=== PATIENT | female | born 1955 | race Hispanic/Latino ===

== ENCOUNTER 2018-03-28 09:18 | Emergency (ER) | payer MEDICARE ==
[2018-03-28 10:19] VITALS: BP 93/45
--- NOTE | 2018-03-28 11:02 | XRay Report ---
Left hand 3 views: History: Trauma. Findings: There is dislocation noted of the proximal phalanx of fifth finger. There is fracture noted at the base of the proximal phalanx of fourth finger. Impression: Findings as detailed above.
[2018-03-28] MEDS ORDERED: MARCAINE 0.25% INFILTRATI ONE ×2 (11:38→11:39)
[2018-03-28] MEDS ORDERED: NORCO 5/325 ONE (11:39)
[2018-03-28] MEDS ORDERED: NORCO 5/325 PO ONE (11:40)
--- NOTE | 2018-03-28 11:40 | Emergency Department Report ---
Blank Doc - Documentation Documentation: Patient is a 62-year-old female who is in a [facility]p. Patient is here with her caregiver. When the caregiver left last night patient was noted to be fine when she saw her this morning patient has fallen overnight and has bruise at the left eye a mild headache and also left hand injury. The patient have a head CT x-ray of the hand and will be reassessed.
--- NOTE | 2018-03-28 11:44 | Emergency Department Report ---
ED Fall HPI - General Chief Complaint: Fall Stated Complaint: SWOLLEN LEFT HAND Time Seen by Provider: 03/28/18 11:34 Source: patient (caregiver), EMS Mode of arrival: Wheelchair Limitations: No Limitations - History of Present Illness Initial Comments: Patient is a 62-year-old female who is in a long term. Patient is here with her caregiver. When the caregiver left last night patient was noted to be fine when she saw her this morning patient has fallen overnight and has bruise at the left eye a mild headache and also left hand injury. Patient states that she also fell 3 days ago. Caregiver reported the patient has multiple episode of fall due to Xanax use or overuse and also mass. She is at [facility] currently for rehabilitation and she said she tripped and fell and injured her left facial area and left hand. She is reporting pain at 9 out of 10 worse with movement better with rest caregiver reported that patient did not get any pain relief prior to coming to the ER and she came here via ambulance. Patient denies any headache but reports pain to her left facial area. She is also a report that she is presenting face only. Patient reports that she did not lose consciousness and caregiver reports that she was reportedly the patient did not lose consciousness. She said that patient takes multiple medication makes her sleepy. She denies any nausea or vomiting. Complaint: fall, other (laceration, hand.) -: This afternoon Fall From: standing When Fall Occurred: 1-3 hours [employer] INSPECT[employer] Fall Witnessed: yes, by living facility s Place Fall Occurred: other (rehab) Loss of Consciousness: none Prolonged Down Time?: no Symptoms Prior to Fall: none Location: head Location - Extremities: Left: Hand (bruising, swelling, laceration and deformity with pain included fingers) Severity: severe Severity scale (0 -10): 9 Quality: other (throbbing) Context: tripped/slipped, other (caregiver reports pt take many sedative medication. at [facility] for rehab) Associated Symptoms: other (unsteady and feet). denies: headache, neck pain, numbness, weakness, chest paint, shortness of breath, abdominal pain, hematuria , unable to walk, lightheaded, vertigo, confusion - Related Data Previous Rx's Medication Instructions Recorded Last Taken Type Acetaminophen 500 mg PO Q8H PRN #12 capsule 03/28/18 Unknown Rx Allergies Allergy/AdvReac Type Severity Reaction Status Date / Time No Known Allergies Allergy Unverified 03/28/18 10:19 ED Review of Systems ROS: Stated complaint: SWOLLEN LEFT HAND Other details as noted in HPI Comment: All other systems reviewed and negative Constitutional: denies: chills, fever Eyes: other (present around left eye). denies: eye pain, eye discharge, vision change ENT: denies: ear pain, throat pain, epistaxis, congestion Respiratory: denies: cough, shortness of breath, SOB with exertion, SOB at rest , stridor, wheezing Cardiovascular: denies: chest pain, palpitations, dyspnea on exertion, edema, syncope, paroxysmal nocturnal dyspnea Gastrointestinal: denies: abdominal pain, nausea, vomiting, diarrhea Genitourinary: denies: dysuria, hematuria Musculoskeletal: joint swelling, arthralgia, myalgia. denies: back pain Skin: rash, change in color, other (bruising to left hand and left facial area) . denies: lesions Neurological: abnormal gait. denies: headache, weakness, numbness, paresthesias , confusion ED Past Medical Hx - Past Medical History Previous Medical History?: Yes Hx Hypertension: Yes Hx Diabetes: Yes Additional medical history: Nicotine abuse. Thoracic vertebra fracture. Potassium - Surgical History Past Surgical History?: No - Family History Family history: CAD/DE, cancer, diabetes, hypertension - Social History Smoking Status: Current Every Day Smoker Substance Use Type: Prescribed - Medications Home Medications: Home Medications Medication Instructions Recorded Confirmed Last Taken Type Acetaminophen 500 mg PO Q8H PRN #12 capsule 03/28/18 Unknown Rx ED Physical Exam - General Limitations: Physical Limitation (patient unsteady and feet) General appearance: alert, in no apparent distress - Head Head exam: Present: atraumatic, normocephalic. Absent: normal inspection - Expanded Head Exam Expanded Head exam: Present: contusion (left periorbital area and facial area), racoon eyes (left eye). Absent: laceration, abrasion, hematoma, doyle's sign, general tenderness, tenderness of temporal artery, CSF rhinorrhea, CSF otorrhea - Eye Eye exam: Present: normal appearance, PERRL, EOMI, nystagmus, periorbital swelling (left), periorbital tenderness (left). Absent: scleral icterus, conjunctival injection Pupils: Present: normal accommodation - ENT ENT exam: Present: normal exam, normal orophraynx, mucous membranes moist, TM's normal bilaterally - Neck Neck exam: Present: normal inspection, full ROM, other (no C-spine tenderness). Absent: tenderness, lymphadenopathy - Expanded Neck Exam Expanded Neck exam: Absent: tenderness, midline deformity, anterior neck swelling, tracheal deviation - Respiratory Respiratory exam: Present: normal lung sounds bilaterally. Absent: respiratory distress, wheezes, rales, rhonchi, stridor, chest wall tenderness, accessory muscle use, decreased breath sounds, prolonged expiratory - Cardiovascular Cardiovascular Exam: Present: regular rate, normal rhythm, normal heart sounds. Absent: systolic murmur, diastolic murmur, rubs, gallop - GI/Abdominal GI/Abdominal exam: Present: soft, normal bowel sounds. Absent: distended, tenderness, guarding, rebound, rigid, organomegaly, mass, bruit, pulsatile mass , hernia - Extremities Exam Extremities exam: Present: full ROM, tenderness, normal capillary refill, joint swelling, other (no clubbing, cyanosis or edema to extremities except left hand dorsal aspect with swelling. Positive contusion and ecchymotic area to the dorsal aspect of her hand. +2 pulses in all extremities. No neurovascular compromise. Positive deformity to left fifth and fourth digits. Positive bruising to left fifth fourth and fifth digit. Noted laceration, small to left hand. No joint crepitus. Patient with full range of motion to all extremities and +5/5 movement.). Absent: normal inspection, pedal edema, calf tenderness - Expanded Upper Extremity Exam Left General: Present: laceration (left hand). Absent: normal inspection, nail injury (#), foreign body, amputation, avulsion Shoulder Exam: Present: normal inspection, full ROM. Absent: tenderness, abrasion, laceration, ecchymosis, deformity, crepidus, dislocation, erythema, tenderness over AC joint Upper Arm exam: Present: normal inspection. Absent: tenderness, swelling, abrasion, laceration, ecchymosis, deformity, crepidus, dislocation, erythema Elbow exam: Present: normal inspection, full ROM. Absent: tenderness, swelling , abrasion, laceration, ecchymosis, deformity, crepidus, dislocation, erythema, effusion, pain w/ pronation/supination, tenderness over radial head Forearm Wrist exam: Present: normal inspection, full ROM. Absent: tenderness, swelling, abrasion, laceration, ecchymosis, deformity, crepidus, dislocation, erythema, tenderness over anatomical snuff box, pain with axial thumb loading Hand Wrist exam: Present: full ROM (for range of motion to left hand the patient reports pain with movement.), tenderness (tender to palpate the left hand and left fifth fourth and third digit.), swelling (left hand dorsal aspect and 15 for digit.), laceration (small 1 cm laceration noted to left hand.), ecchymosis (left hand and fist and 4 digits), deformity (left fifth digit), dislocation (left fifth digit), erythema (left hand). Absent: normal inspection , abrasion, crepidus, amputation, nail avulsion, subungual hematoma Neuro motor exam: Present: wrist extension intact, thumb opposition intact, thumb IP flexion intact, thumb adduction intact, fingers 2-5 abduction intact Neurosensory exam: Present: 2-point discrimination, radial nerve intact, ulnar nerve intact, median nerve intact Vascular: Present: normal capillary refill, radial pulse, brachial pulse, ulnar pulse. Absent: vascular compromise, Pallo, pulse deficit radial art, pulse deficit ulnar art, pulse deficit brachial art - Back Exam Back exam: Present: normal inspection, full ROM, other (patient ambulates). Absent: tenderness, CVA tenderness (R), CVA tenderness (L), muscle spasm, paraspinal tenderness, vertebral tenderness, rash noted - Neurological Exam Neurological exam: Present: alert, oriented X3 - Psychiatric Psychiatric exam: Present: normal affect, normal mood - Skin Skin exam: Present: warm, dry, intact, normal color. Absent: rash ED Course Vital Signs 03/28/18 03/28/18 03/28/18 10:12 11:51 15:30 Temperature 98.6 F Pulse Rate 65 65 Respiratory 16 18 16 Rate Blood Pressure 93/45 O2 Sat by Pulse 95 99 Oximetry - Reevaluation(s) Reevaluation #1: 03/28/18 12:39 Patient received hydrocodone 5/325 mg tablet by mouth for right hand pain. Patient dislocation of the fifth metacarpal bone and fracture of fourth proximal phalanx. She is status post digital block with reduction. Awaits postreduction x-ray. Please see procedure note for details. Reevaluation #2: 03/28/18 14:57 Post reduction x-ray of left hand as stable. Patient pains better. Splint placed please see procedure note for details. Patient stable - Laceration /Wound Repair Left Distal Dorsal Hand Wound Location: upper extremity (left hand between the fourth and third metacarpal bone area.) Wound Length (cm): 1 Wound's Depth, Shape: superficial, linear Wound Explored: clean Irrigated w/ Saline (ccs): 100 Betadine Prep?: Yes Volume Anesthetic (ccs): 0 Wound Debrided: moderate Wound Repaired With: Steri-strips (5 small Steri-Strips and wound edges are well approximated.) Number of Sutures: 5 Layer Closure?: No Sterile Dressing Applied?: Yes - Nerve Block Consent Obtained: verbal consent, emergent situation Time Out Performed: Yes Local Anesthetic Used: Marcaine 0.25% Amount of anesthesia used: 3 Side: left Nerve Blocks: ulnar, digital Procedure Successful: Yes (patient tolerated) Complications: none Patient Tolerated Procedure: well, no complications - Orthopedic Joint Reduction Joint #1 Consent Obtained: verbal consent, emergent situation Time Out Performed: Yes Side: left Joint Reduction Location: other (fifth MCP joint) Analgesia: digital block Local Anesthetic Used: Bupivicaine 0.25% Amount of Anesthetic Used (mls): 4 Technique Used: traction/counter-traction, direct manipulation Post-Reduction Neuro Exam: intact Post-Reduction Vascular Exam: intact Post Reduction X-Ray Obtained: Yes Splint Applied: Yes - Orthopedic Splinting/Casting Injury #1 Side: left Upper Extremity Injury Location: hand Upper Extremity Immobilizer: volar spint Additional Comments: status post splint, patient with good color, sensation, movement, temperature 2 fingers of left hand. ED Medical Decision Making - Radiology Data Radiology results: report reviewed X-ray of left hand reveals dislocation of proximal phalanx of fifth finger films with dislocation of fifth MCP joint. Also x-ray of the left hand with fracture of the base of the proximal phalanx of fourth finger. Post reduction x-ray reported patient with satisfactory reduction of dislocated fifth MCP joint. Comminuted traumatic closed fracture of the proximal phalanx of third ring finger with slight displacement of fracture fragments CT scan of the C-spine reveals spondylolisthesis with no acute fracture CT head and brain without contrast shows no acute intracranial abdomen mildly. Moderate volume loss. Mucosal thickening in the right axillary sinus. No extracranial fluid collection. - Medical Decision Making ED course: She was brought from [facility] where she has been rehabilitated for abuse of prescription medication. This was relayed to me by crimper operator. Patient has a history of multiple falls and she fell this morning and hit her facial area and also her left hand. Patient with contusion and black eye to left periorbital area, left facial area with minimal tenderness. Denies any headache or neck pain. She also had contusion to her left hand and deformity to left fifth digit and left 4 digit pain. X-ray report revealed patient with fracture of the base of the proximal phalanx of the fourth finger and location noted of the proximal phalanx fifth finger but I reviewed films with Dr. Arias and was decided that patient has his location of fifth MCP bone. Patient is alert and responsive and denies any loss of consciousness or that she ate her head. She is neurologically intact except she has unsteady gait which her caregiver says this is unusual for her. Prereduction x-ray of left hand and postreduction x-ray of left hand. Patient had multiple seizure and emergency room and will be discussed below. Her CT scan of her head and neck with negative findings. Radiology/lab: CT scan of brain revealed no acute extracranial or intracranial abnormality. CT scan of C-spine revealed no acute findings. X-ray of left hand reveals fracture to the fourth proximal finger and dislocation to fifth finger. Please refer to radiology section for details. There are no laboratory studies done. Post reduction x-ray of left hand shows that dislocation was successfully reduced. Procedures: Please see procedure note for details on reduction of dislocated MCP bone. Post reduction x-ray reveals normal findings and bone is back in place. Patient had digital block and laceration repair. She also had full R splint placed to her left hand. She tolerated procedure well and she has good pulses neurovascular check status post procedures. Patient given explanation on all procedures before they were done. Medication and emergency room: 5/325 mg one tablet by mouth. Tetanus shot up to date. She says that pain was better. Discharge prescription: Tylenol 500 mg every 8 hour when necessary for pain. Diagnosis: Dislocation of fifth MCP bone, left hand, fracture of proximal fourth phalanx. Arthralgia multiple sites, contusion multiple sites, laceration left Fit until fall in elderly patient, routine abuse Education. Patient smokes one half pack a day for multiple years and I gave her information on nicotine abuse and how to stop smoking. Information given and splint care. Fall prevention, overuse of prescription medication and explanation of multiple diagnoses. Follow-up: Patient instructed to follow up with her primary care physician and Dr. Rey's orthopedic doctor. Caregiver reports the patient will be able to make it to her follow-up visit while she is at [facility]. Patient discharged from ED in stable condition with crimper operator. Critical care attestation.: If time is entered above; I have spent that time in minutes in the direct care of this critically ill patient, excluding procedure time. ED Disposition Clinical Impression: Closed dislocation of metacarpophalangeal (MCP) joint of left little finger, Arthralgia of multiple sites, Ecchymosis, Musculoskeletal pain, Nicotine abuse Fracture of finger of left hand Qualifiers: Encounter type: initial encounter Finger: ring finger Fracture type: closed Phalanx: proximal Fracture alignment: displaced Qualified Code(s): S62.615A - Displaced fracture of proximal phalanx of left ring finger, initial encounter for closed fracture Facial contusion Qualifiers: Encounter type: initial encounter Qualified Code(s): S00.83XA - Contusion of other part of head, initial encounter Fall, accidental Qualifiers: Encounter type: initial encounter Qualified Code(s): W19.XXXA - Unspecified fall, initial encounter Laceration of hand, right Qualifiers: Encounter type: initial encounter Foreign body presence: without foreign body Qualified Code(s): S61.411A - Laceration without foreign body of right hand, initial encounter Disposition: DC-01 TO HOME OR SELFCARE Is pt being admited?: No Does the pt Need Aspirin: No Condition: Stable Instructions: How to Stop Smoking (ED), Laceration (ED), Finger Fracture (ED), Black Eye (ED), Fall Prevention for Older Adults (ED), Contusion in Adults (ED) , Finger Dislocation (ED), Skin Adhesive Care (ED) Additional Instructions: Please follow up with your primary care physician tomorrow status post fall Please follow up with orthopedic doctor Dr. Rey status post finger fracture, dislocation of fifth metacarpal bone and poor balance. These are not removed splint until seen by orthopedic doctor See discharge instruction in Rice therapy Take plain Tylenol for pain Please keep small laceration to left hand clean and dry and do not remove Steri- Strips Prescriptions: Acetaminophen 500 mg PO Q8H PRN #12 capsule PRN Reason: Pain , Severe (7-10) Referrals: PRIMARY CARE, [Primary Care Provider] - 03/29/18 NATHALIE REY MD [Staff Physician] - 03/30/18
--- NOTE | 2018-03-28 13:20 | XRay Report ---
XRAY LEFT HAND 2 VIEWS: 03/28/18 12:49 CLINICAL: Post reduction. COMPARISON: 07/29/18 10:37 FINDINGS: Since the last exam, the dislocated fifth MCP joint has been satisfactory reduced with normal alignment. Comminuted fracture of the proximal aspect of the proximal phalanx of the ring finger. Slight displacement of both medial and lateral corner fracture fragments. No callus. No other fracture. Soft tissue swelling of the dorsum of the hand and a few tiny superficial foreign bodies near the skin at the base of the fourth and fifth fingers. IMPRESSION: Satisfactory reduction of the dislocated fifth MCP joint. Comminuted traumatic closed fracture of the proximal phalanx of the ring finger with slight displacement of fracture fragments.
--- NOTE | 2018-03-28 14:03 | Cat Scan Report ---
CT scan of head without IV contrast: History: Fall, injury. Findings: Ventricles are midline in location. Moderate volume loss be more pronounced in the left side. No evidence of acute ischemia or hemorrhage. No extra axial fluid collection. Normal brainstem and cerebellum. Impression: No acute intracranial abnormality. Moderate volume loss. Mucosal thickening right maxillary sinus.
--- NOTE | 2018-03-28 14:05 | Cat Scan Report ---
CT scan of cervical spine: History: Fall, injury. Findings: Normal height of vertebral bodies 2 decrease in height of C4-C5, C5-C6 and C6-C7. Sclerotic articular surfaces with osteophyte suggestive severe cervical spondylosis. No fracture. Normal prevertebral soft tissue. Impression: Spondylosis. No evidence of acute fracture.
== END 2018-03-28 15:29 | disposition home or self-care (01) ==
LOC: ED 09:18
DX: S62.615A Displaced fracture of proximal phalanx of left ring finger, initial encounter for closed fracture (principal); S00.83XA Contusion of other part of head, initial encounter; F17.200 Nicotine dependence, unspecified, uncomplicated; I10 Essential (primary) hypertension; E11.9 Type 2 diabetes mellitus without complications; W01.198A Fall on same level from slipping, tripping and stumbling with subsequent striking against other object, initial encounter; Y93.89 Activity, other specified; Y92.89 Other specified places as the place of occurrence of the external cause; Y99.8 Other external cause status
CPT/HCPCS: 70450; 72125